=== PATIENT | female | born 1980 | race African-American/Black ===

== ENCOUNTER 2018-07-23 17:43 | Emergency (ER) | payer SELFPAY ==
[~2018-07-23 17:43] MED LIST: Iopamidol 370 76% 100 ML VIAL ONE
[2018-07-23 19:05] LABS: Bilirubin Negative (Negative); Blood, Urine Negative (Negative); Clarity CLEAR (Clear); Glucose, Urine (Dipstick) Negative (Negative); Leukocyte Negative (Negative); Nitrite Negative (Negative); Protein, Urine (Dipstick) Negative (Neg-Trace); Specific Gravity, Urine 1.027 (1.002-1.036)
[2018-07-23 22:19] LABS: Pregnancy Test - Urine (BHCG) Negative (Negative); Pregu Control Background? CLEAR/WHITE (CLR/WHITE); Pregu Control Bar Appear? YES (CONTROL BAR); Specific Gravity 1.027 (1.002-1.036)
[2018-07-23 22:19] LABS: #Basophils 0.1 thou/uL (0.0-0.2); #Eosinphils 0.7 thou/uL (0.0-0.7); #Monocytes 0.8 thou/uL (0.11-0.59); #Neutrophils 9.8 thou/uL (1.40-6.50); %Basophils 0.8 % (0.0-1.0); %Eosinophils 4.1 % (0.0-10.0); %Lymphocytes 30.4 % (21.0-51.0); %Neutrophils 59.8 % (42.0-75.0); Hemoglobin 12.9 g/dL (12.0-16.0); Mean Corpuscular Hemoglobin 30.2 pg (27.0-31.0); Mean Corpuscular Volume 94.4 fL (78.0-98.0); Mean Platelet Volume 7.1 fL (7.4-10.4); Platelet Count 362 thou/uL (130-400); RBC Distribution Width 13.5 % (11.5-14.5); Red Blood Cell (RBC) Count 4.27 mill/uL (4.20-5.40); White Blood Cell (WBC) Count 16.4 thou/uL (4.8-10.8)
[2018-07-23] MEDS ORDERED: Ondansetron PF 4 MG/2 ML Vial ONE (22:26)
[2018-07-23] MEDS ORDERED: Morphine 2 MG/ML SYRINGE ONE (22:26)
[2018-07-23 22:39] LABS: ALT (SGPT) 13 U/L (8-55); AST (SGOT) 17 U/L (5-34); Albumin 3.7 g/dL (3.5-5.0); Alkaline Phosphatase 100 U/L (40-150); Anion Gap 10 mmol/L (10-20); BUN (Urea Nitrogen) 12 mg/dL (7.0-18.7); Bilirubin, Total 0.2 mg/dL (0.2-1.2); Calc. Creatinine Clearance 0 mL/min (70-130); Calcium 8.6 mg/dL (7.8-10.44); Carbon Dioxide 26 mmol/L (22-29); Chloride 106 mmol/L (98-107); Estimated GFR-MDRD 66; Globulin 3.4 g/dL (2.4-3.5); Glucose 87 mg/dL (70-105); Lipase 21 U/L (8-78); Potassium 3.5 mmol/L (3.5-5.1); Protein, Total 7.1 g/dL (6.0-8.3); Sodium 138 mmol/L (136-145)
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
== END 2018-07-23 23:42 | disposition home or self-care (01) ==
LOC: ERS 17:43
DX: T14.8XXA Other injury of unspecified body region, initial encounter (principal); V89.2XXA Person injured in unspecified motor-vehicle accident, traffic, initial encounter
CPT/HCPCS: 36415; 71046; 74177; 80053; 81003; 81025; 83690; 85025; 96374; 96375; J2270; J2405

== ENCOUNTER 2018-07-27 17:58 | Emergency (ER) | payer SELFPAY ==
[2018-07-27] MEDS ORDERED: Ketorolac Tromethamine 60 MG/2 ML VIAL ONE (18:51)
[2018-07-27] MEDS ORDERED: Dexamethasone 10 MG/ML VIAL ONE (18:55)
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
== END 2018-07-27 19:22 | disposition home or self-care (01) ==
LOC: ERS 17:58
DX: M54.5 Low back pain (principal); I10 Essential (primary) hypertension; F32.9 Major depressive disorder, single episode, unspecified; F17.210 Nicotine dependence, cigarettes, uncomplicated
CPT/HCPCS: 72100; 96372; J1100; J1885

== ENCOUNTER 2018-12-21 21:02 | Emergency (ER) | payer SELFPAY ==
--- NOTE | 2018-12-21 22:22 | RAD ---
FXR Knee Lt 4 View STANDARD: 12/21/2018 9:52 PM CLINICAL INDICATION: Edema COMPARISON: None. FINDINGS: Fracture:No fracture. Arthropathy:Mild arthropathy. Incidental findings:None of significance. Moderate joint capsular distention IMPRESSION: 1. No acute osseous abnormality. 2. Moderate joint capsular distention. Correlate clinically.
[2018-12-21] MEDS ORDERED: Ibuprofen 800 MG TAB ONE (23:09)
== END 2018-12-21 23:08 | disposition home or self-care (01) ==
LOC: ERS 21:02
DX: M25.462 Effusion, left knee (principal); I10 Essential (primary) hypertension; F32.9 Major depressive disorder, single episode, unspecified; F17.210 Nicotine dependence, cigarettes, uncomplicated; Z79.899 Other long term (current) drug therapy

== ENCOUNTER 2019-12-22 06:56 | Emergency (ER) | payer SELFPAY ==
[2019-12-22 07:24] LABS: #Basophils 0.1 thou/uL (0.0-0.2); #Eosinphils 0.6 thou/uL (0.0-0.7); #Lymphocytes 4.7 thou/uL (1.20-3.40); #Monocytes 0.5 thou/uL (0.11-0.59); #Neutrophils 9.9 thou/uL (1.40-6.50); %Basophils 0.8 % (0.0-1.0); %Eosinophils 4.1 % (0.0-10.0); %Lymphocytes 29.6 % (21.0-51.0); %Monocytes 3.3 % (0.0-10.0); %Neutrophils 62.3 % (42.0-75.0); Hemoglobin 12.6 g/dL (12.0-16.0); Mean Corpuscular Hemoglobin 31.2 pg (27.0-31.0); Mean Corpuscular Volume 91.9 fL (78.0-98.0); Mean Platelet Volume 6.8 fL (7.4-10.4); Platelet Count 380 thou/uL (130-400); RBC Distribution Width 13.9 % (11.5-14.5); Red Blood Cell (RBC) Count 4.03 mill/uL (4.20-5.40); White Blood Cell (WBC) Count 15.8 thou/uL (4.8-10.8)
[2019-12-22 07:31] LABS: BHCG - Serum Negative (NEGATIVE); Pregs Control Background? CLEAR/WHITE (CLR/WHITE); Pregs Control Bar Appear? YES (CONTROL BAR)
[2019-12-22 07:46] LABS: ALT (SGPT) 20 U/L (8-55); AST (SGOT) 25 U/L (5-34); Albumin 3.7 g/dL (3.5-5.0); Alkaline Phosphatase 105 U/L (40-110); Anion Gap 13 mmol/L (10-20); BUN (Urea Nitrogen) 10 mg/dL (7.0-18.7); Bilirubin, Total 0.2 mg/dL (0.2-1.2); CK (CPK) 138 U/L (29-168); Calc. Creatinine Clearance 0 mL/min (70-130); Calcium 8.2 mg/dL (7.8-10.44); Carbon Dioxide 25 mmol/L (22-29); Chloride 104 mmol/L (98-107); Estimated GFR-MDRD 85; Globulin 3.9 g/dL (2.4-3.5); Glucose 92 mg/dL (70-105); Lipase 28 U/L (8-78); Potassium 4.1 mmol/L (3.5-5.1); Protein, Total 7.6 g/dL (6.0-8.3); Sodium 138 mmol/L (136-145)
--- NOTE | 2019-12-22 08:39 | RAD ---
SINGLE VIEW OF THE CHEST: COMPARISON: 07/12/2016. HISTORY: Chest pain. FINDINGS: Single view of the chest shows a normal sized cardiomediastinal silhouette. There is no evidence of c onsolidation, mass, or pleural effusion. The bones are unremarkable. IMPRESSION: No evidence of acute cardiopulmonary disease. POS: [facility]
[2019-12-22] MEDS ORDERED: Ketorolac Tromethamine 30 MG/ML VIAL ONE (08:41)
[2019-12-22 09:23] LABS: Troponin I 0.017 ng/mL (< 0.028)
--- NOTE | 2019-12-23 13:43 | EKG ---
Test Reason : CHEST PAIN Blood Pressure : / mmHG Vent. Rate : 082 BPM Atrial Rate : 082 BPM P-R Int : 150 ms QRS Dur : 072 ms QT Int : 396 ms P-R-T Axes : 061 -08 055 degrees QTc Int : 462 ms Normal sinus rhythm Possible Left atrial enlargement Borderline ECG Confirmed by VAMSI ALTMAN ([id number]), industrial editor DIANNA QUEVEDO ([id number]) on 12/23/2019 1:43:14 PM Referred By: Confirmed By:VAMSI ALTMAN
--- NOTE | 2019-12-23 13:43 | EKG ---
Test Reason : Blood Pressure : / mmHG Vent. Rate : 064 BPM Atrial Rate : 064 BPM P-R Int : 148 ms QRS Dur : 078 ms QT Int : 436 ms P-R-T Axes : 061 -02 033 degrees QTc Int : 449 ms Normal sinus rhythm Normal ECG Confirmed by VAMSI ALTMAN ([id number]), web editor DIANNA QUEVEDO ([id number]) on 12/23/2019 1:43:16 PM Referred By: Confirmed By:VAMSI ALTMAN
== END 2019-12-22 10:17 | disposition home or self-care (01) ==
LOC: ERS 06:56
DX: R09.1 Pleurisy (principal); R07.89 Other chest pain; I10 Essential (primary) hypertension; F32.9 Major depressive disorder, single episode, unspecified; F17.210 Nicotine dependence, cigarettes, uncomplicated; Z79.899 Other long term (current) drug therapy
CPT/HCPCS: 36415; 71045; 80053; 82550; 83690; 84484; 84703; 85025; 85379; 93005; 96374; J1885

== ENCOUNTER 2020-06-21 13:24 | Outpatient (CLI) | payer MEDICAID ==
--- NOTE | 2020-06-21 14:28 | ULT ---
TRANSABDOMINAL AND TRANSVAGINAL PELVIC ULTRASOUND WITH GRAYSCALE, COLOR-FLOW AND SPECTRAL DOPPLER DANIEL GING: HISTORY:Abnormal uterine bleeding, uterine fibroid FINDINGS: Uterus: 8.4 x 5.6 x 6.2cm Endometrium: 10 mm in thickness Right ovary: 3.3 x 2.2 x 2.4cm Left ovary: Not visualized There is a 4.3 cm uterine mass consistent with fibroid. No endometrial fluid is seen. Flow is demonstrated to the right ovary. No adnexal mass or free fluid in the cul-de-sac is identified. IMPRESSION: Uterine fibroid
--- NOTE | 2020-06-21 15:21 | MMO ---
Bilateral MAMMO Bilat Screen [facility]. CLINICAL HISTORY: Patient is 40 years old and is seen for screening. The patient has no family history of breast cancer. The patient has no personal history of cancer. VIEWS: The views performed were: bilateral craniocaudal and bilateral mediolateral oblique. This study has been interpreted with the assistance of computer-aided detection. MAMMOGRAM FINDINGS: There are scattered fibroglandular densities. There are no suspicious masses, suspicious calcifications, or new areas of architectural distortion. IMPRESSION: THERE IS NO MAMMOGRAPHIC EVIDENCE OF MALIGNANCY. A ROUTINE FOLLOW-UP MAMMOGRAM IN 1 YEAR IS RECOMMENDED. ACR BI-RADS Category 1 - Negative MAMMOGRAPHY NOTE: 1. A negative mammogram report should not delay a biopsy if a dominant of clinically suspicious mass is present. 2. Approximately 10% to 15% of breast cancers are not detected by mammography. 3. Adenosis and dense breasts may obscure an underlying neoplasm. Reported by: DARLENE MEDINA MD Electonically Signed: [id number]
== END 2020-06-21 13:25 | disposition home or self-care (01) ==
LOC: BICMAMMO 13:24
PROVIDERS: ATTEND Family Medicine
DX: Z12.31 Encounter for screening mammogram for malignant neoplasm of breast (principal); N93.9 Abnormal uterine and vaginal bleeding, unspecified; D25.9 Leiomyoma of uterus, unspecified
CPT/HCPCS: 76856; 77067

== ENCOUNTER 2020-06-23 11:03 | Emergency (ER) | payer MEDICAID ==
[2020-06-23 11:38] LABS: #Basophils 0.1 thou/uL (0.0-0.2); #Eosinphils 0.7 thou/uL (0.0-0.7); #Lymphocytes 3.3 thou/uL (1.20-3.40); #Monocytes 0.6 thou/uL (0.11-0.59); #Neutrophils 11.5 thou/uL (1.40-6.50); %Basophils 0.6 % (0.0-1.0); %Lymphocytes 20.7 % (21.0-51.0); %Monocytes 3.7 % (0.0-10.0); Hemoglobin 13.8 g/dL (12.0-16.0); Mean Corpuscular HGB CONC 33.7 g/dL (32.0-36.0); Mean Corpuscular Volume 91.8 fL (78.0-98.0); Mean Platelet Volume 7.3 fL (7.4-10.4); Platelet Count 547 thou/uL (130-400); RBC Distribution Width 13.6 % (11.5-14.5); Red Blood Cell (RBC) Count 4.46 mill/uL (4.20-5.40); White Blood Cell (WBC) Count 16.1 thou/uL (4.8-10.8)
[2020-06-23 12:13] LABS: BHCG - Serum Negative (NEGATIVE); Pregs Control Background? CLEAR/WHITE (CLR/WHITE); Pregs Control Bar Appear? YES (CONTROL BAR)
[2020-06-23 12:17] LABS: ALT (SGPT) 9 U/L (8-55); AST (SGOT) 24 U/L (5-34); Alkaline Phosphatase 113 U/L (40-110); Anion Gap 14 mmol/L (10-20); BUN (Urea Nitrogen) 8 mg/dL (7.0-18.7); Bilirubin, Total 0.4 mg/dL (0.2-1.2); Calc. Creatinine Clearance 0 mL/min (70-130); Carbon Dioxide 24 mmol/L (22-29); Chloride 101 mmol/L (98-107); Estimated GFR-MDRD 74; Glucose 85 mg/dL (70-105); Lipase 14 U/L (8-78); Potassium 4.3 mmol/L (3.5-5.1); Sodium 135 mmol/L (136-145)
--- NOTE | 2020-06-23 13:24 | ULT ---
Exam: Right upper quadrant ultrasound: HISTORY: Abdominal pain. COMPARISON: None FINDINGS: Liver: Increased echogenicity suggesting hepatic steatosis. Gallbladder: Incompletely distended, but no gallbladder calculus is seen. There is no gallbladder wal l thickening or pericholecystic fluid. Common bile duct: The common duct is normal in caliber measuring 0.3 cm in diameter. Pancreas: Obscured by shadowing from bowel gas and unable to be evaluated. Right kidney: Right kidney demonstrates a normal sonographic appearance. The right kidney measures 9 .5 cm in length. IVC: The visualized IVC demonstrates a normal sonographic appearance. IMPRESSION: 1. Hepatic steatosis. 2. No gallbladder calculus is seen, and the common duct is normal in caliber.
--- NOTE | 2020-06-23 13:25 | RAD ---
PORTABLE CHEST 1 VIEW: Date: Time: 1313 hours HISTORY: Dry cough and right-sided abdominal pain. COMPARISON: 12/22/2019. FINDINGS: The heart size is normal. The lungs are well expanded without lobar consolidation, pneumothoraces, or pleural effusions. IMPRESSION: No radiographic evidence of acute cardiopulmonary process. POS: [facility]
[2020-06-23] MEDS ORDERED: Ketorolac Tromethamine 30 MG/ML VIAL ONE (13:36)
[2020-06-23 15:24] LABS: Bacteria/HPF 3+ HPF (None Seen); Bilirubin Negative (Negative); Blood, Urine Trace (Negative); Clarity Turbid (Clear); Glucose, Urine (Dipstick) Normal (Negative); Ketone, Urine Negative (Negative); Leukocyte 75 Leu/uL (Negative); Nitrite 1+ (Negative); Protein, Urine (Dipstick) 20 mg/dL (Neg-Trace); RBC/HPF 0-3 HPF (0-3); Squamous Epithelial 0-3 HPF (0-3)
[2020-06-23] MEDS ORDERED: cefTRIAXone\\ROCEPHIN 2 GM VIAL ONE (15:54)
--- NOTE | 2020-06-23 16:36 | CT ---
CT ABDOMEN AND PELVIS WITHOUT IV CONTRAST: Date: 06/23/2020 INDICATION: Right flank pain. UTI. Comparison made to CT abdomen and pelvis from 07/23/2018. FINDINGS: Images through the lung bases reveal a new pleural based mass in the right paravertebral location in the right lung base medially which measures up to 4.5 cm. Neoplasm is a primary concern and further e valuation with CT chest with IV contrast is recommended. The liver, spleen, and pancreas appear unremarkable for an unenhanced study. A left adrenal nodule is again seen. This is described on the prior study. The CT densities would ind icate a benign adenoma. Kidneys are unremarkable. No hydronephrosis. Small bowel loops normal. The cecum lies low in the pelvis. The appendix is not well delineated. No e vidence of appendicitis identified. Colon otherwise unremarkable. Images through the pelvis reveal an unremarkable uterus and adnexa. The urinary bladder is contracted . No free fluid. No adenopathy. Osseous structures unremarkable. IMPRESSION: 1. There is a pleural based paravertebral mass in the right medial lower chest which is new from the prior exam. Recommend further evaluation with chest CT with contrast. 2. No acute intra-abdominal process. POS: [facility]
== END 2020-06-23 17:43 | disposition home or self-care (01) ==
LOC: ERS 11:03
DX: N12 Tubulo-interstitial nephritis, not specified as acute or chronic (principal); R91.8 Other nonspecific abnormal finding of lung field; I10 Essential (primary) hypertension; F32.9 Major depressive disorder, single episode, unspecified; F17.210 Nicotine dependence, cigarettes, uncomplicated
CPT/HCPCS: 36415; 71045; 74176; 76705; 80053; 81003; 81015; 83690; 84484; 84703; 85025; 87077; 87086; 87186; 93005; 96365; 96375; J0696; J1885

== ENCOUNTER 2020-07-04 01:00 | Emergency (ER) | payer MEDICAID ==
[2020-07-04] MEDS ORDERED: Proparacaine 0.5% Opth 15 ML BOT ONE (01:16)
[2020-07-04] MEDS ORDERED: Fluorescein Opthalmic Strip ONE (01:16)
== END 2020-07-04 01:46 | disposition home or self-care (01) ==
LOC: ERS 01:00
DX: H10.9 Unspecified conjunctivitis (principal); I10 Essential (primary) hypertension; F32.9 Major depressive disorder, single episode, unspecified; F17.210 Nicotine dependence, cigarettes, uncomplicated; Z79.899 Other long term (current) drug therapy
CPT/HCPCS: 99283

== ENCOUNTER 2021-01-04 21:12 | Emergency (ER) | payer SELFPAY ==
[2021-01-04 22:26] LABS: #Basophils 0.1 thou/uL (0.0-0.2); #Lymphocytes 4.7 thou/uL (1.20-3.40); #Monocytes 0.7 thou/uL (0.11-0.59); #Neutrophils 11.7 thou/uL (1.40-6.50); %Basophils 0.8 % (0.0-1.0); %Eosinophils 5.4 % (0.0-10.0); %Lymphocytes 25.9 % (21.0-51.0); Mean Corpuscular HGB CONC 33.7 g/dL (32.0-36.0); Mean Corpuscular Volume 91.9 fL (78.0-98.0); Mean Platelet Volume 6.6 fL (7.4-10.4); Platelet Count 370 thou/uL (130-400); RBC Distribution Width 14.4 % (11.5-14.5); Red Blood Cell (RBC) Count 3.88 mill/uL (4.20-5.40); White Blood Cell (WBC) Count 18.3 thou/uL (4.8-10.8)
[2021-01-04 22:43] LABS: ALT (SGPT) 85 U/L (8-55); AST (SGOT) 58 U/L (5-34); Albumin 3.9 g/dL (3.5-5.0); Alkaline Phosphatase 121 U/L (40-110); Anion Gap 14 mmol/L (10-20); BUN (Urea Nitrogen) 13 mg/dL (7.0-18.7); Bilirubin, Total Less than 0.2 mg/dL (0.2-1.2); Calc. Creatinine Clearance 0 mL/min (70-130); Calcium 8.8 mg/dL (7.8-10.44); Carbon Dioxide 27 mmol/L (22-29); Chloride 103 mmol/L (98-107); Globulin 3.5 g/dL (2.4-3.5); Glucose 93 mg/dL (70-105); Lipase 29 U/L (8-78); Potassium 3.5 mmol/L (3.5-5.1); Protein, Total 7.4 g/dL (6.0-8.3); Sodium 140 mmol/L (136-145)
[2021-01-04] MEDS ORDERED: Morphine 4 MG/ML VIAL ONE (23:39)
[2021-01-04] MEDS ORDERED: Ondansetron PF 4 MG/2 ML Vial ONE (23:40)
[2021-01-05 01:03] LABS: Bilirubin Negative (Negative); Blood, Urine Negative (Negative); Clarity Clear (Clear); Glucose, Urine (Dipstick) Normal (Negative); Ketone, Urine Negative (Negative); Leukocyte Negative Leu/uL (Negative); Nitrite Negative (Negative); Protein, Urine (Dipstick) Negative (Neg-Trace); Urobilinogen Normal mg/dL (Less than 2); pH, Urine 6.5 (5.0-9.0)
[2021-01-05 01:04] LABS: Pregnancy Test - Urine (BHCG) Negative (Negative); Pregu Control Background? CLEAR/WHITE (CLR/WHITE); Pregu Control Bar Appear? YES (CONTROL BAR)
[2021-01-05] MEDS ORDERED: Morphine 4 MG/ML VIAL ONE (01:55)
== END 2021-01-05 03:00 | disposition home health service (06) ==
LOC: ERS 21:12
DX: R10.31 Right lower quadrant pain (principal); R10.11 Right upper quadrant pain; E27.9 Disorder of adrenal gland, unspecified; D72.829 Elevated white blood cell count, unspecified; I10 Essential (primary) hypertension; F17.210 Nicotine dependence, cigarettes, uncomplicated; Z79.899 Other long term (current) drug therapy
CPT/HCPCS: 36415; 74177; 76705; 80053; 81003; 81025; 83690; 84484; 85025; 87086; 93005; 96374; 96375; 96376; J2270; J2405; Q9967

== ENCOUNTER 2021-03-11 08:18 | Emergency (ER) | payer SELFPAY | END 2021-03-11 10:03 | disposition home or self-care (01) | LOC: ERS 08:18 | DX: H57.12 Ocular pain, left eye (principal); H57.89 Other specified disorders of eye and adnexa; I10 Essential (primary) hypertension; F17.210 Nicotine dependence, cigarettes, uncomplicated; Z79.899 Other long term (current) drug therapy | CPT/HCPCS: 99283 ==

== ENCOUNTER 2021-08-12 21:24 | Emergency (ER) | payer SELFPAY ==
[2021-08-12] MEDS ORDERED: Acetaminophen 500 MG TAB ONE (22:19)
== END 2021-08-12 22:57 | disposition home or self-care (01) ==
LOC: ERS 21:24
DX: M25.511 Pain in right shoulder (principal); I10 Essential (primary) hypertension; F17.210 Nicotine dependence, cigarettes, uncomplicated

== ENCOUNTER 2022-03-31 14:53 | Emergency (ER) | payer SELFPAY ==
[2022-03-31] MEDS ORDERED: Ketorolac Tromethamine 30 MG/ML VIAL ONE (16:16)
[2022-03-31 16:22] LABS: #Basophils 0.1 thou/uL (0.0-0.2); #Eosinphils 0.7 thou/uL (0.0-0.7); #Lymphocytes 4.4 thou/uL (1.20-3.40); #Monocytes 0.6 thou/uL (0.11-0.59); %Basophils 0.6 % (0.0-1.0); %Eosinophils 4.5 % (0.0-10.0); %Lymphocytes 29.9 % (21.0-51.0); %Monocytes 4.3 % (0.0-10.0); %Neutrophils 60.7 % (42.0-75.0); Hemoglobin 12.5 g/dL (12.0-16.0); Mean Corpuscular HGB CONC 33.4 g/dL (32.0-36.0); Mean Corpuscular Hemoglobin 31.6 pg (27.0-31.0); Mean Corpuscular Volume 94.8 fL (78.0-98.0); Mean Platelet Volume 6.8 fL (7.4-10.4); Platelet Count 393 thou/uL (130-400); RBC Distribution Width 14.4 % (11.5-14.5); Red Blood Cell (RBC) Count 3.95 mill/uL (4.20-5.40); White Blood Cell (WBC) Count 14.8 thou/uL (4.8-10.8)
[2022-03-31 16:44] LABS: ALT (SGPT) 15 U/L (8-55); AST (SGOT) 23 U/L (5-34); Albumin 3.6 g/dL (3.5-5.0); Alkaline Phosphatase 137 U/L (40-110); Anion Gap 14 mmol/L (10-20); BUN (Urea Nitrogen) 10 mg/dL (7.0-18.7); Bilirubin, Total 0.3 mg/dL (0.2-1.2); Calc. Creatinine Clearance 0 mL/min (70-130); Calcium 8.7 mg/dL (7.8-10.44); Carbon Dioxide 24 mmol/L (22-29); Chloride 104 mmol/L (98-107); Estimated GFR 80; Globulin 3.9 g/dL (2.4-3.5); Glucose 82 mg/dL (70-105); Potassium 3.3 mmol/L (3.5-5.1); Protein, Total 7.5 g/dL (6.0-8.3); Sodium 139 mmol/L (136-145)
== END 2022-03-31 17:41 | disposition home or self-care (01) ==
LOC: ERS 14:53
DX: M79.602 Pain in left arm (principal); I10 Essential (primary) hypertension; F17.210 Nicotine dependence, cigarettes, uncomplicated
CPT/HCPCS: 36415; 71045; 80053; 84484; 85025; 93005; 96374; J1885

== ENCOUNTER 2022-08-02 15:16 | Emergency (ER) | payer MEDICAID ==
[2022-08-02] MEDS ORDERED: Proparacaine 0.5% Opth 15 ML BOT ONE (15:52)
[2022-08-02] MEDS ORDERED: Fluorescein Opthalmic Strip ONE (15:52)
[2022-08-02] MEDS ORDERED: Lidocaine 1% PF 5 ML VIAL ONE (16:19)
[2022-08-02] MEDS ORDERED: HYDROcodone/Acetaminophen 10/325 mg Tablet ONE (16:42)
== END 2022-08-02 17:42 | disposition home or self-care (01) ==
LOC: ERS 15:16
DX: H15.003 Unspecified scleritis, bilateral (principal); L03.011 Cellulitis of right finger; I10 Essential (primary) hypertension; E78.5 Hyperlipidemia, unspecified; F17.210 Nicotine dependence, cigarettes, uncomplicated
CPT/HCPCS: 96372; J1790

== ENCOUNTER 2022-10-06 12:30 | Emergency (ER) | payer MEDICAID, OTHER, SELFPAY ==
[2022-10-06] MEDS ORDERED: Proparacaine 0.5% Opth 15 ML BOT ONE (13:42)
[2022-10-06] MEDS ORDERED: Fluorescein Opthalmic Strip ONE (13:42)
[2022-10-06] MEDS ORDERED: Ketorolac Tromethamine 0.5% Ophth Soln 3 ml Bottle EA EYE SCH (14:15)
[2022-10-06] MEDS ORDERED: HYDROcodone/Acetaminophen 10/325 mg Tablet ONE (14:15)
[2022-10-06] MEDS ORDERED: hydrALAZINE 20 MG/ML VIAL ONE (14:15)
[2022-10-06] MEDS ORDERED: hydrALAZINE 10 MG TAB PO SCH (14:30)
[2022-10-06 15:04] LABS: #Basophils 0.1 thou/uL (0.0-0.2); #Eosinphils 0.3 thou/uL (0.0-0.7); #Monocytes 0.7 thou/uL (0.11-0.59); #Neutrophils 10.5 thou/uL (1.40-6.50); %Basophils 0.4 % (0.0-1.0); %Eosinophils 1.9 % (0.0-10.0); %Lymphocytes 30.2 % (21.0-51.0); %Monocytes 4.1 % (0.0-10.0); %Neutrophils 63.4 % (42.0-75.0); Hemoglobin 14.5 g/dL (12.0-16.0); Mean Corpuscular HGB CONC 33.3 g/dL (32.0-36.0); Mean Corpuscular Hemoglobin 31.1 pg (27.0-31.0); Mean Corpuscular Volume 93.4 fl (78.0-98.0); Mean Platelet Volume 7.6 fL (7.4-10.4); Platelet Count 447 10x3/uL (130-400); RBC Distribution Width 14.8 % (11.5-14.5); Red Blood Cell (RBC) Count 4.65 mill/uL (4.20-5.40); White Blood Cell (WBC) Count 16.5 10x3/uL (4.8-10.8)
[2022-10-06 15:24] LABS: ALT (SGPT) 15 U/L (8-55); AST (SGOT) 20 U/L (5-34); Albumin 4.5 g/dL (3.5-5.0); Alkaline Phosphatase 162 U/L (40-110); Anion Gap 17 mmol/L (10-20); BUN (Urea Nitrogen) 8 mg/dL (7.0-18.7); Bilirubin, Total 0.3 mg/dL (0.2-1.2); Calc. Creatinine Clearance 0 mL/min (70-130); Calcium 9.6 mg/dL (7.8-10.44); Carbon Dioxide 27 mmol/L (22-29); Chloride 99 mmol/L (98-107); Estimated GFR 69; Globulin 3.8 g/dL (2.4-3.5); Glucose 97 mg/dL (70-105); Potassium 2.8 mmol/L (3.5-5.1); Protein, Total 8.3 g/dL (6.0-8.3); Sodium 140 mmol/L (136-145)
[2022-10-06] MEDS ORDERED: Cefepime 2 GM VIAL ONE (15:52)
[2022-10-06] MEDS ORDERED: VANCOMYCIN 2 GRAM/500 ML BAG 2 GM in Premix Bag 1 BAG IVPB SCH (16:00)
[2022-10-06] MEDS ORDERED: Potassium Chloride 20 MEQ TAB ONE (16:22)
[2022-10-06] MEDS ORDERED: Ondansetron PF 4 MG/2 ML Vial ONE (18:05)
[2022-10-06] MEDS ORDERED: Fentanyl 100 MCG/2 ML VIAL ONE (18:05)
[2022-10-06 19:24] LABS: Bacteria/HPF 3+ HPF (None Seen); Bilirubin Negative (Negative); Blood, Urine 2+ (Negative); Clarity Turbid (Clear); Glucose, Urine (Dipstick) Normal (Negative); Ketone, Urine Trace mg/dL (Negative); Leukocyte 25 Leu/uL (Negative); Nitrite Negative (Negative); Protein, Urine (Dipstick) 20 mg/dL (Neg-Trace); RBC/HPF 0-3 HPF (0-3); Specific Gravity, Urine 1.022 (1.002-1.036); Urobilinogen Normal mg/dL (Less than 2); pH, Urine 5.5 (5.0-9.0)
== END 2022-10-06 20:09 | disposition short-term general hospital (02) ==
LOC: ERS 12:30
DX: H15.001 Unspecified scleritis, right eye (principal); I10 Essential (primary) hypertension; D72.829 Elevated white blood cell count, unspecified; F17.210 Nicotine dependence, cigarettes, uncomplicated; Z79.899 Other long term (current) drug therapy
CPT/HCPCS: 36415; 70481; 80053; 81003; 81015; 85025; 85652; 86140; 87040; 96365; 96367; 96375; J0360; J0692; J2405; J3010; J3370

== ENCOUNTER 2022-11-09 10:25 | Emergency (ER) | payer OTHER ==
[2022-11-09] MEDS ORDERED: Fluorescein Opthalmic Strip ONE (11:32)
[2022-11-09] MEDS ORDERED: Proparacaine 0.5% Opth 15 ML BOT ONE (11:32)
[2022-11-09 11:42] LABS: #Basophils 0.1 thou/uL (0.0-0.2); #Eosinphils 0.7 thou/uL (0.0-0.7); #Lymphocytes 3.7 thou/uL (1.20-3.40); #Monocytes 0.7 thou/uL (0.11-0.59); #Neutrophils 12.9 thou/uL (1.40-6.50); %Basophils 0.4 % (0.0-1.0); %Eosinophils 4.1 % (0.0-10.0); %Lymphocytes 20.7 % (21.0-51.0); %Monocytes 3.6 % (0.0-10.0); %Neutrophils 71.2 % (42.0-75.0); Hemoglobin 12.9 g/dL (12.0-16.0); Mean Corpuscular HGB CONC 32.5 g/dL (32.0-36.0); Mean Corpuscular Hemoglobin 30.2 pg (27.0-31.0); Platelet Count 558 10x3/uL (130-400); RBC Distribution Width 14.9 % (11.5-14.5); Red Blood Cell (RBC) Count 4.28 mill/uL (4.20-5.40); White Blood Cell (WBC) Count 18.1 10x3/uL (4.8-10.8)
[2022-11-09 11:57] LABS: ALT (SGPT) 10 U/L (8-55); AST (SGOT) 17 U/L (5-34); Albumin 3.8 g/dL (3.5-5.0); Alkaline Phosphatase 105 U/L (40-110); Anion Gap 16 mmol/L (10-20); BUN (Urea Nitrogen) 10 mg/dL (7.0-18.7); Bilirubin, Total 0.4 mg/dL (0.2-1.2); Calc. Creatinine Clearance 0 mL/min (70-130); Calcium 9.5 mg/dL (7.8-10.44); Carbon Dioxide 29 mmol/L (22-29); Chloride 97 mmol/L (98-107); Estimated GFR 99; Globulin 4.4 g/dL (2.4-3.5); Glucose 95 mg/dL (70-105); Protein, Total 8.2 g/dL (6.0-8.3); Sodium 140 mmol/L (136-145)
[2022-11-09 12:06] LABS: Potassium 2.4 mmol/L (3.5-5.1)
[2022-11-09] MEDS ORDERED: Ketorolac Tromethamine 30 MG/ML VIAL ONE (12:13)
[2022-11-09] MEDS ORDERED: HYDROmorphone 0.5 MG/0.5 ML SYRINGE ONE ×2 (12:13→13:21)
[2022-11-09] MEDS ORDERED: Potassium Chloride 20 MEQ TAB ONE (12:26)
[2022-11-09] MEDS ORDERED: Ondansetron PF 4 MG/2 ML Vial ONE (12:27)
[2022-11-09] MEDS ORDERED: Iopamidol-370 76% 500 ML 1 ML ONE (12:31)
[2022-11-09] MEDS ORDERED: diphenhydrAMINE 50 MG/ML VIAL ONE ×2 (14:04→16:57)
[2022-11-09] MEDS ORDERED: methylPREDNISolone Sod Succ/PF 125 MG/2 ML VIAL ONE (15:17)
== END 2022-11-09 22:32 ==
LOC: ERS 10:25
DX: H15.091 Other scleritis, right eye (principal); H54.7 Unspecified visual loss; D72.829 Elevated white blood cell count, unspecified; I10 Essential (primary) hypertension; F17.210 Nicotine dependence, cigarettes, uncomplicated; Z79.899 Other long term (current) drug therapy
CPT/HCPCS: 36415; 70450; 70487; 71045; 80053; 83605; 83880; 84484; 85025; 85652; 86140; 93005; 96374; 96375; 96376; J1170; J1200; J1885; J2405; J2930; Q9967

== ENCOUNTER 2025-06-21 12:14 | Emergency (ER) | payer BC, SELFPAY | END 2025-06-21 13:10 | disposition left against medical advice (07) | LOC: ERS 12:14 | DX: Z53.21 Procedure and treatment not carried out due to patient leaving prior to being seen by health care provider (principal) ==

== ENCOUNTER 2025-08-30 16:25 | Emergency (ER) | payer SELFPAY ==
[2025-08-30] MEDS ORDERED: Methocarbamol 500 MG TAB ONE (17:23)
== END 2025-08-30 17:56 | disposition home or self-care (01) ==
LOC: ERS 16:25
DX: M72.2 Plantar fascial fibromatosis (principal); I10 Essential (primary) hypertension; F17.290 Nicotine dependence, other tobacco product, uncomplicated
CPT/HCPCS: 96372; 99283